=== PATIENT | male | born 1965 | race Caucasian/White ===

== ENCOUNTER 2019-08-21 08:25 | Outpatient (CLI) | payer OTHER, SELFPAY | END 2019-08-21 08:26 | disposition home or self-care (01) | LOC: ANHAUDIO 08:28 | PROVIDERS: PCP Family Medicine; Visit Provider Family Medicine | DX: H93.13 Tinnitus, bilateral (principal); H90.3 Sensorineural hearing loss, bilateral | CPT/HCPCS: 92557; 92567 ==